=== PATIENT | female | born 1955 | race Caucasian/White ===

== ENCOUNTER 2019-02-21 12:32 | Outpatient (CLI) | payer MEDICARE | END 2019-02-21 23:59 | disposition home or self-care (01) | LOC: RAD 12:32 | PROVIDERS: ATTEND Physician Assistant | DX: E04.1 Nontoxic single thyroid nodule (principal) | CPT/HCPCS: 10005; 88173 ==

== ENCOUNTER 2019-12-16 10:21 | Outpatient (CLI) | payer MEDICARE | END 2019-12-16 23:59 | disposition home or self-care (01) | LOC: CFH 10:21 | PROVIDERS: ATTEND Physician Assistant | DX: N60.02 Solitary cyst of left breast (principal) | CPT/HCPCS: 76642; 77066; G0279 ==